=== PATIENT | male | born 1945 | race Caucasian/White ===

== ENCOUNTER → 2017-01-10 | Outpatient (CLI) | payer MEDICARE, OTHER | LOC: KOH-I 10:51 | DX: M54.2 Cervicalgia (principal); M54.41 Lumbago with sciatica, right side; M54.42 Lumbago with sciatica, left side; M51.36 Other intervertebral disc degeneration, lumbar region; Z98.1 Arthrodesis status; M99.71 Connective tissue and disc stenosis of intervertebral foramina of cervical region | CPT/HCPCS: 72125; 72131 ==

== ENCOUNTER → 2020-08-02 | Outpatient (CLI) | payer MEDICARE, OTHER ==
[~2020-08-02] VITALS: Ht 172.7 cm; Wt 64.0 kg
[~2020-08-02] MED LIST: CYMBALTA60 MG PO; PEPCID40 MG PO; PREDNISONE20 MG PO; PROTONIX40 MG PO; SIMVASTATIN40 MG PO; TOPROL XL25 MG PO
== END ==
LOC: OPSV 12:00
DX: M06.9 Rheumatoid arthritis, unspecified (principal)
CPT/HCPCS: 36415; 96365; 96375; J1720

== ENCOUNTER → 2020-08-29 | Outpatient (CLI) | payer MEDICARE, OTHER | LOC: EXRD 09:31 | DX: M05.79 Rheumatoid arthritis with rheumatoid factor of multiple sites without organ or systems involvement (principal); M53.82 Other specified dorsopathies, cervical region | CPT/HCPCS: 72040 ==

== ENCOUNTER → 2020-08-30 | Outpatient (CLI) | payer MEDICARE, OTHER | LOC: OPSV 11:54 | DX: M06.9 Rheumatoid arthritis, unspecified (principal) | CPT/HCPCS: 96365; 96375; J1720 ==

== ENCOUNTER → 2020-09-27 | Outpatient (CLI) | payer MEDICARE, OTHER ==
[~2020-09-27] VITALS: Ht 172.7 cm; Wt 64.0 kg
== END ==
LOC: OPSV 11:03
DX: M06.9 Rheumatoid arthritis, unspecified (principal)
CPT/HCPCS: 96365; 96375; J1720

== ENCOUNTER → 2020-10-25 | Outpatient (CLI) | payer MEDICARE, OTHER ==
[~2020-10-25] VITALS: Ht 172.7 cm; Wt 64.0 kg
== END ==
LOC: OPSV 10:46
DX: M06.9 Rheumatoid arthritis, unspecified (principal)
CPT/HCPCS: 96365; 96375; J1720

== ENCOUNTER → 2020-11-22 | Outpatient (CLI) | payer MEDICARE, OTHER ==
[2020-11-22 11:13] LABS: HEMOGLOBIN 14.3 gm/dl (14.0-17.5); RED BLOOD COUNT 4.71 M/UL (4.20-5.50); WHITE BLOOD COUNT 9.9 K/UL (4.5-11.0)
[2020-11-22 11:31] LABS: BUN/CREATININE RATIO 17 (0-10)
== END ==
LOC: OPSV 10:47
PROVIDERS: Internal Medicine
DX: M06.9 Rheumatoid arthritis, unspecified (principal)
CPT/HCPCS: 36415; 80053; 85027; 96365; 96375; J1720

== ENCOUNTER → 2020-12-20 | Outpatient (CLI) | payer MEDICARE, OTHER ==
[~2020-12-20] VITALS: Ht 172.7 cm; Wt 64.0 kg
== END ==
LOC: OPSV 10:00
DX: M06.9 Rheumatoid arthritis, unspecified (principal)
CPT/HCPCS: 96365; 96375; J1720

== ENCOUNTER → 2021-02-20 | Outpatient (CLI) | payer MEDICARE, OTHER ==
[~2021-02-20] VITALS: Ht 172.7 cm; Wt 64.0 kg
== END ==
LOC: OPSV 09:00
DX: M06.9 Rheumatoid arthritis, unspecified (principal)
CPT/HCPCS: 96365; 96375; J1720

== ENCOUNTER → 2021-03-20 | Outpatient (CLI) | payer MEDICARE, OTHER ==
[~2021-03-20] VITALS: Ht 172.7 cm; Wt 64.0 kg
== END ==
LOC: OPSV 09:39
DX: M06.9 Rheumatoid arthritis, unspecified (principal)
CPT/HCPCS: 96365; 96375; J1720

== ENCOUNTER → 2021-04-26 | Outpatient (CLI) | payer MEDICARE, OTHER ==
[~2021-04-26] VITALS: Ht 172.7 cm; Wt 64.0 kg
[2021-04-26 11:12] LABS: HEMOGLOBIN 12.7 gm/dl (14.0-17.5); RED BLOOD COUNT 4.07 M/UL (4.20-5.50); WHITE BLOOD COUNT 11.4 K/UL (4.5-11.0)
[2021-04-26 12:01] LABS: BUN/CREATININE RATIO 10 (0-10)
== END ==
LOC: OPSV 04-17 11:00
PROVIDERS: Internal Medicine
DX: M06.9 Rheumatoid arthritis, unspecified (principal)
CPT/HCPCS: 36415; 80053; 85027; 96365; 96375; J1720

== ENCOUNTER → 2021-05-24 | Outpatient (CLI) | payer MEDICARE, OTHER ==
[~2021-05-24] VITALS: Ht 172.7 cm; Wt 64.0 kg
== END ==
LOC: OPSV 11:00
DX: M06.9 Rheumatoid arthritis, unspecified (principal)
CPT/HCPCS: 96365; 96375; J1720

== ENCOUNTER → 2021-08-15 | Outpatient (CLI) | payer MEDICARE, OTHER ==
[~2021-08-15] VITALS: Ht 172.7 cm; Wt 64.0 kg
[2021-08-15 10:07] LABS: RED BLOOD COUNT 4.46 M/UL (4.20-5.50); WHITE BLOOD COUNT 11.7 K/UL (4.5-11.0)
[2021-08-15 10:24] LABS: BUN/CREATININE RATIO 11 (0-10)
== END ==
LOC: OPSV 09:44
PROVIDERS: Internal Medicine
DX: M06.9 Rheumatoid arthritis, unspecified (principal)
CPT/HCPCS: 36415; 80053; 85027; 96365; 96375; J1720

== ENCOUNTER → 2021-09-12 | Outpatient (CLI) | payer MEDICARE, OTHER ==
[~2021-09-12] VITALS: Ht 172.7 cm; Wt 64.0 kg
[2021-09-12 11:02] LABS: HEMOGLOBIN 12.2 gm/dl (14.0-17.5); RED BLOOD COUNT 4.55 M/UL (4.20-5.50); WHITE BLOOD COUNT 11.2 K/UL (4.5-11.0)
[2021-09-12 11:34] LABS: BUN/CREATININE RATIO 14 (0-10)
== END ==
LOC: OPSV 09:53
PROVIDERS: Internal Medicine
DX: M06.9 Rheumatoid arthritis, unspecified (principal)
CPT/HCPCS: 80053; 85027; 96365; 96375; J1720

== ENCOUNTER → 2021-10-10 | Outpatient (CLI) | payer MEDICARE, OTHER ==
[~2021-10-10] VITALS: Ht 172.7 cm; Wt 64.0 kg
[2021-10-10 11:33] LABS: HEMOGLOBIN 13.6 gm/dl (14.0-17.5); RED BLOOD COUNT 5.33 M/UL (4.20-5.50); WHITE BLOOD COUNT 10.2 K/UL (4.5-11.0)
[2021-10-10 12:47] LABS: BUN/CREATININE RATIO 16 (0-10)
== END ==
LOC: OPSV 10:00
PROVIDERS: Internal Medicine
DX: M06.9 Rheumatoid arthritis, unspecified (principal)
CPT/HCPCS: 80053; 85027; 96365; J1720

== ENCOUNTER → 2021-12-05 | Outpatient (CLI) | payer MEDICARE, OTHER ==
[~2021-12-05] VITALS: Ht 172.7 cm; Wt 64.0 kg
[2021-12-05 11:00] LABS: HEMOGLOBIN 13.1 gm/dl (14.0-17.5); RED BLOOD COUNT 4.91 M/UL (4.20-5.50); WHITE BLOOD COUNT 7.3 K/UL (4.5-11.0)
[2021-12-05 11:07] LABS: BUN/CREATININE RATIO 14 (0-10)
== END ==
LOC: OPSV 10:00
PROVIDERS: Internal Medicine
DX: M06.9 Rheumatoid arthritis, unspecified (principal)
CPT/HCPCS: 80053; 85027; 96365; J1720

== ENCOUNTER → 2022-01-02 | Outpatient (CLI) | payer MEDICARE, OTHER ==
[~2022-01-02] VITALS: Ht 172.7 cm; Wt 64.0 kg
== END ==
LOC: OPSV 10:38
DX: M06.9 Rheumatoid arthritis, unspecified (principal)
CPT/HCPCS: 96365; 96375; J1720

== ENCOUNTER → 2022-01-30 | Outpatient (CLI) | payer MEDICARE, OTHER ==
[~2022-01-30] VITALS: Ht 172.7 cm; Wt 64.0 kg
== END ==
LOC: OPSV 10:38
DX: M06.9 Rheumatoid arthritis, unspecified (principal)
CPT/HCPCS: 96365; 96375; J1720

== ENCOUNTER → 2022-03-01 | Outpatient (CLI) | payer MEDICARE, OTHER ==
[~2022-03-01] VITALS: Ht 172.7 cm; Wt 64.0 kg
[2022-03-01 12:16] LABS: RED BLOOD COUNT 4.15 M/UL (4.20-5.50); WHITE BLOOD COUNT 8.5 K/UL (4.5-11.0)
[2022-03-01 12:48] LABS: BUN/CREATININE RATIO 12 (0-10)
== END ==
LOC: OPSV 02-27 11:00
PROVIDERS: Internal Medicine
DX: M06.9 Rheumatoid arthritis, unspecified (principal)
CPT/HCPCS: 80053; 85027; 96365; 96375; J1720

== ENCOUNTER → 2022-04-03 | Outpatient (CLI) | payer MEDICARE, OTHER ==
[~2022-04-03] VITALS: Ht 172.7 cm; Wt 64.0 kg
== END ==
LOC: OPSV 03-29 12:00
DX: M06.9 Rheumatoid arthritis, unspecified (principal)
CPT/HCPCS: 96365; 96375; J1720

== ENCOUNTER → 2022-05-01 | Outpatient (CLI) | payer MEDICARE, OTHER ==
[~2022-05-01] VITALS: Ht 172.7 cm; Wt 64.0 kg
== END ==
LOC: OPSV 10:44
DX: M06.9 Rheumatoid arthritis, unspecified (principal)
CPT/HCPCS: 96365; 96375; J1720